=== PATIENT | female | born 1980 | race Asian ===

== ENCOUNTER 2016-06-09 14:04 | Emergency (ER) | payer MEDICAID, OTHER ==
[~2016-06-09] VITALS: Ht 157.5 cm; Wt 47.3 kg
[~2016-06-09 14:04] MED LIST: LORA1TAB3 PO
[2016-06-09] MEDS ORDERED: RANI150T7 PO (14:29)
[2016-06-09 17:12] VITALS: BP 115/65
== END 2016-06-09 18:08 | disposition home or self-care (01) ==
LOC: EMS 14:06
DX: J30.9 Allergic rhinitis, unspecified (principal); K21.9 Gastro-esophageal reflux disease without esophagitis
CPT/HCPCS: 99283

== ENCOUNTER 2016-06-10 09:27 | Emergency (ER) | payer OTHER ==
[~2016-06-10] VITALS: Ht 157.5 cm; Wt 48.0 kg
[~2016-06-10 09:27] MED LIST changes: -LORA1TAB3 PO; +RANI150T7 PO
[2016-06-10 11:55] VITALS: BP 114/75
== END 2016-06-10 12:09 | disposition home or self-care (01) ==
LOC: EMS 09:28
DX: K11.7 Disturbances of salivary secretion (principal); K21.9 Gastro-esophageal reflux disease without esophagitis; F41.9 Anxiety disorder, unspecified
CPT/HCPCS: 99283

== ENCOUNTER 2021-06-18 16:39 | Inpatient (IN) | payer MEDICAID, OTHER ==
[~2021-06-18] VITALS: Ht 157.5 cm; Wt 42.5 kg
[~2021-06-18 16:39] MED LIST changes: +FERR325T27 PO; +RISP3TAB35 PO
[2021-06-18 18:42] LABS: COVID AG,FIA SOURCE NASAL SWAB
[2021-06-18] MEDS ORDERED: HALOPERIDOL LACTATE 5 MG/ML VIAL IM ONE (19:30)
[2021-06-18] MEDS ORDERED: LORazepam 2 MG/ML VIAL IM ONE (19:30)
[2021-06-18] MEDS ORDERED: DiphenhydrAMINE HCL 50 MG/ML VIAL IM ONE (19:30)
[2021-06-18 20:23] LABS: BASOPHILS % (AUTO) 0.5 % (0.0-2.0); EOSINOPHILS % (AUTO) 0.2 % (1.0-6.0); HEMATOCRIT 34.6 % (36-46); HEMOGLOBIN 11.3 g/dL (12.0-16.0); LYMPHOCYTES # (AUTO) 0.7 K/uL (1.0-4.8); LYMPHOCYTES % (AUTO) 10.8 % (22.0-44.0); MEAN CORPUSCULAR HGB CONC 32.7 G/dL (31.0-37.0); MEAN CORPUSCULAR VOLUME 86 fL (80-100); MONOCYTES # (AUTO) 0.4 K/uL (0.1-1.0); MONOCYTES % (AUTO) 6.6 % (2.0-9.0); NEUTROPHILS # (AUTO) 5.2 K/uL (1.8-7.7); NEUTROPHILS % (AUTO) 81.9 % (40.0-70.0); PLATELET COUNT (AUTO) 231 K/uL (150-450); RED BLOOD CELL COUNT(AUTO) 4.05 MIL/uL (4.00-5.20); RED CELL DISTRIBUTION WIDTH 13.1 % (11.5-14.5)
[2021-06-18 20:32] LABS: ANION GAP 5 mmol/L (8-16); CALCIUM, TOTAL 8.9 mg/dL (8.8-10.5); CARBON DIOXIDE 29 mmol/L (22-29); CHLORIDE 104 mmol/L (98-107); CREATININE 0.73 mg/dL (0.60-1.30); GLOMERULAR FILTR. RATE CALC > 60 mL/min (>60); GLUCOSE,RANDOM 113 mg/dL (70-110); POTASSIUM 3.7 mmol/L (3.5-5.1); SODIUM SERUM 138 mmol/L (136-145); UREA NITROGEN, BLOOD 10 mg/dL (7-18)
[2021-06-18 20:38] LABS: ALANINE AMINOTRANSFERASE 17 U/L (12-78); ALBUMIN 3.6 g/dL (3.4-5.0); ALKALINE PHOSPHATASE 58 U/L (46-116); ASPARTATE AMINOTRANSFERASE 17 U/L (15-37); BILIRUBIN,TOTAL 0.3 mg/dL (0.1-1.0); TOTAL PROTEIN, SERUM 7.2 g/dL (6.4-8.2)
[2021-06-18 21:00] LABS: THYROID STIMULATING HORMONE 1.64 uIU/mL (0.36-3.74)
[2021-06-18] MEDS ORDERED: ZOLPIDEM TARTRATE 10 MG TABLET PO PRN (22:45)
[2021-06-18] MEDS ORDERED: LORazepam 2 MG TABLET PO PRN (22:45)
[2021-06-18] MEDS ORDERED: HALOPERIDOL 5 MG TABLET PO PRN (22:45)
[2021-06-19 00:30] VITALS: BP 119/74
[2021-06-19] MEDS ORDERED: INFLUENZA VIRUS VACCINE QVS 2021-22 (6MO+)/PF 60 MCG/0.5 ML SYRINGE IM. ONE (06:45)
[2021-06-19] MEDS ORDERED: RisperiDONE 3 MG TABLET PO SCH (11:00)
[2021-06-19] MEDS ORDERED: LOPERAMIDE HCL 2 MG CAPSULE PO PRN (11:30)
[2021-06-19] MEDS ORDERED: IBUPROFEN 400 MG TABLET PO PRN (11:30)
[2021-06-19] MEDS ORDERED: DOCUSATE SODIUM 100 MG CAPSULE PO PRN (11:30)
[2021-06-19] MEDS ORDERED: MAGNESIUM HYDROXIDE SUSPENSION 30 ML UDCUP PO PRN (11:30)
[2021-06-19] MEDS ORDERED: CloNIDine HCL 0.1 MG TABLET PO PRN (11:30)
[2021-06-19] MEDS ORDERED: MAG HYDROX/AL HYDROX/SIMETH ES 30 ML SUSPENSION UDCUP PO PRN (11:30)
[2021-06-19] MEDS ORDERED: ALBUTEROL SULFATE HFA 90 MCG/PUFF 8 GM INHALER IH PRN (11:30)
[2021-06-19] MEDS ORDERED: GuaiFENesin/D-METHORPHAN [SUGAR-FREE] 200-20MG/10 ML SYRUP UDCUP PO PRN (11:30)
[2021-06-19] MEDS ORDERED: ACETAMINOPHEN 325 MG TABLET PO PRN (11:30)
[2021-06-19] MEDS ORDERED: ONDANSETRON HCL 4 MG TABLET PO PRN (11:30)
[2021-06-19] MEDS ORDERED: NICOTINE 14 MG/24 HOUR PATCH TD PRN (11:30)
[2021-06-19] MEDS ORDERED: PETROLATUM,WHITE 28 GM JELLY TP PRN (11:30)
[2021-06-19] MEDS: RisperiDONE 2 MG TABLET PO SCH (21:00)
[2021-06-20] MEDS: RisperiDONE 2 MG TABLET PO SCH ×2 (09:00→21:00)
[2021-06-20] MEDS: SERTRALINE HCL 50 MG TABLET PO SCH (09:00)
[2021-06-21] MEDS: SERTRALINE HCL 50 MG TABLET PO SCH (08:47)
[2021-06-21] MEDS: RisperiDONE 2 MG TABLET PO SCH ×2 (08:47→20:50)
[2021-06-22] MEDS: RisperiDONE 2 MG TABLET PO SCH ×4 (08:38→21:00)
[2021-06-22] MEDS: SERTRALINE HCL 50 MG TABLET PO SCH ×2 (08:38→09:00)
[2021-06-23] MEDS: SERTRALINE HCL 50 MG TABLET PO SCH (09:00)
[2021-06-23] MEDS: RisperiDONE 2 MG TABLET PO SCH ×2 (09:00→20:35)
[2021-06-24] MEDS: SERTRALINE HCL 50 MG TABLET PO SCH (09:00)
[2021-06-24] MEDS: RisperiDONE 2 MG TABLET PO SCH ×2 (09:00→20:32)
[2021-06-25] MEDS: SERTRALINE HCL 50 MG TABLET PO SCH (09:00)
[2021-06-25] MEDS: RisperiDONE 2 MG TABLET PO SCH ×2 (09:00→20:48)
[2021-06-26] MEDS: SERTRALINE HCL 50 MG TABLET PO SCH (09:00)
[2021-06-26] MEDS: RisperiDONE 2 MG TABLET PO SCH ×2 (09:00→20:46)
[2021-06-27] MEDS: RisperiDONE 2 MG TABLET PO SCH ×2 (09:00→21:00)
[2021-06-27] MEDS: SERTRALINE HCL 50 MG TABLET PO SCH (09:00)
[2021-06-28] MEDS: SERTRALINE HCL 50 MG TABLET PO SCH (09:00)
[2021-06-28] MEDS: RisperiDONE 2 MG TABLET PO SCH ×2 (09:00→20:47)
[2021-06-29] MEDS: RisperiDONE 2 MG TABLET PO SCH ×2 (09:00→21:00)
[2021-06-29] MEDS: SERTRALINE HCL 50 MG TABLET PO SCH (09:00)
[2021-06-30] MEDS: SERTRALINE HCL 50 MG TABLET PO SCH (09:00)
[2021-06-30] MEDS: RisperiDONE 2 MG TABLET PO SCH ×2 (09:00→20:33)
[2021-06-30] MEDS: HALOPERIDOL LACTATE 5 MG/ML VIAL IM PRN (20:34)
[2021-07-01] MEDS: SERTRALINE HCL 50 MG TABLET PO SCH (09:00)
[2021-07-01] MEDS: RisperiDONE 2 MG TABLET PO SCH ×2 (09:00→20:44)
[2021-07-01] MEDS: HALOPERIDOL LACTATE 5 MG/ML VIAL IM PRN ×2 (11:05→20:45)
[2021-07-02] MEDS: SERTRALINE HCL 50 MG TABLET PO SCH (09:00)
[2021-07-02] MEDS: RisperiDONE 2 MG TABLET PO SCH ×2 (09:00→21:00)
[2021-07-02] MEDS: HALOPERIDOL LACTATE 5 MG/ML VIAL IM PRN ×2 (10:58→21:08)
[2021-07-03] MEDS: RisperiDONE 2 MG TABLET PO SCH ×2 (09:00→20:42)
[2021-07-03] MEDS: SERTRALINE HCL 50 MG TABLET PO SCH (09:00)
[2021-07-03] MEDS: HALOPERIDOL LACTATE 5 MG/ML VIAL IM PRN ×2 (09:35→20:50)
[2021-07-04] MEDS: SERTRALINE HCL 50 MG TABLET PO SCH (09:00)
[2021-07-04] MEDS: RisperiDONE 2 MG TABLET PO SCH ×2 (09:00→20:37)
[2021-07-04] MEDS: HALOPERIDOL LACTATE 5 MG/ML VIAL IM PRN ×2 (10:45→20:47)
[2021-07-05] MEDS: SERTRALINE HCL 50 MG TABLET PO SCH (09:00)
[2021-07-05] MEDS: RisperiDONE 2 MG TABLET PO SCH ×2 (09:00→20:52)
[2021-07-05] MEDS: HALOPERIDOL LACTATE 5 MG/ML VIAL IM PRN ×2 (10:15→20:54)
[2021-07-06] MEDS: RisperiDONE 2 MG TABLET PO SCH ×2 (09:00→20:54)
[2021-07-06] MEDS: SERTRALINE HCL 50 MG TABLET PO SCH (09:00)
[2021-07-07] MEDS: SERTRALINE HCL 50 MG TABLET PO SCH ×2 (09:00→09:04)
[2021-07-07] MEDS: RisperiDONE 2 MG TABLET PO SCH ×3 (09:00→21:00)
[2021-07-08] MEDS: RisperiDONE 2 MG TABLET PO SCH ×2 (09:00→21:00)
[2021-07-08] MEDS: SERTRALINE HCL 50 MG TABLET PO SCH (09:00)
[2021-07-09] MEDS: RisperiDONE 2 MG TABLET PO SCH ×2 (09:00→21:00)
[2021-07-09] MEDS: SERTRALINE HCL 50 MG TABLET PO SCH (09:00)
[2021-07-10] MEDS: SERTRALINE HCL 50 MG TABLET PO SCH (09:00)
[2021-07-10] MEDS: RisperiDONE 2 MG TABLET PO SCH ×2 (09:00→20:35)
[2021-07-11] MEDS: RisperiDONE 2 MG TABLET PO SCH ×2 (09:00→20:28)
[2021-07-11] MEDS: SERTRALINE HCL 50 MG TABLET PO SCH (09:00)
[2021-07-12] MEDS: RisperiDONE 2 MG TABLET PO SCH (09:00)
[2021-07-12] MEDS: SERTRALINE HCL 50 MG TABLET PO SCH (09:00)
[2021-07-12] MEDS ORDERED: SERT-439 PO (10:57)
[2021-07-12] MEDS ORDERED: RISP2TAB86 PO (10:57)
[2021-07-12 12:30] VITALS: BP 118/76
== END 2021-07-12 16:40 | disposition home or self-care (01) | DRG 750 ==
LOC: EMS 18:18 → 3EI 06-19 00:07
PROVIDERS: ADMIT Psychiatry & Neurology Psychiatry; ATTEND Psychiatry & Neurology Psychiatry
DX: F20.0 Paranoid schizophrenia (principal); E46 Unspecified protein-calorie malnutrition; D70.9 Neutropenia, unspecified; Z91.14 Patient's other noncompliance with medication regimen; F41.0 Panic disorder [episodic paroxysmal anxiety]; F94.0 Selective mutism; K21.9 Gastro-esophageal reflux disease without esophagitis; D64.9 Anemia, unspecified; Z20.822 Contact with and (suspected) exposure to COVID-19; Z68.1 Body mass index [BMI] 19.9 or less, adult
CPT/HCPCS: 80053; 84443; 85025; 99285; G0480; J1200; J1630; J2060

== ENCOUNTER 2022-01-07 14:23 | Inpatient (IN) | payer MEDICAID, OTHER ==
[~2022-01-07] VITALS: Ht 160 cm; Wt 45.8 kg
[~2022-01-07 14:23] MED LIST changes: -FERR325T27 PO; -RANI150T7 PO; +RISP2TAB86 PO; -RISP3TAB35 PO; +SERT-439 PO
[2022-01-07] MEDS ORDERED: LORazepam 2 MG TABLET PO PRN (16:30)
[2022-01-07] MEDS ORDERED: ZOLPIDEM TARTRATE 10 MG TABLET PO PRN (16:30)
[2022-01-07] MEDS ORDERED: HALOPERIDOL 5 MG TABLET PO PRN (16:30)
[2022-01-07 16:35] LABS: COVID AG,FIA SOURCE NASOPHARYNGEAL
[2022-01-07] MEDS ORDERED: INFLUENZA VIRUS VACCINE QVS 2022-23 (6MO+)/PF 60 MCG/0.5 ML SYRINGE IM. ONE (22:00)
[2022-01-08] MEDS ORDERED: PETROLATUM,WHITE 28 GM JELLY TP PRN (11:30)
[2022-01-08] MEDS ORDERED: LOPERAMIDE HCL 2 MG CAPSULE PO PRN (11:30)
[2022-01-08] MEDS ORDERED: ONDANSETRON HCL 4 MG TABLET PO PRN (11:30)
[2022-01-08] MEDS ORDERED: ACETAMINOPHEN 325 MG TABLET PO PRN (11:30)
[2022-01-08] MEDS ORDERED: NICOTINE 14 MG/24 HOUR PATCH TD PRN (11:30)
[2022-01-08] MEDS ORDERED: MAG HYDROX/AL HYDROX/SIMETH ES 30 ML SUSPENSION UDCUP PO PRN (11:30)
[2022-01-08] MEDS ORDERED: ALBUTEROL SULFATE HFA 90 MCG/PUFF 8 GM INHALER IH PRN (11:30)
[2022-01-08] MEDS ORDERED: CloNIDine HCL 0.1 MG TABLET PO PRN (11:30)
[2022-01-08] MEDS ORDERED: DOCUSATE SODIUM 100 MG CAPSULE PO PRN (11:30)
[2022-01-08] MEDS ORDERED: GuaiFENesin/D-METHORPHAN [SUGAR-FREE] 200-20MG/10 ML SYRUP UDCUP PO PRN (11:30)
[2022-01-08] MEDS ORDERED: MAGNESIUM HYDROXIDE SUSPENSION 30 ML UDCUP PO PRN (11:30)
[2022-01-08] MEDS ORDERED: IBUPROFEN 400 MG TABLET PO PRN (11:30)
[2022-01-08] MEDS: SERTRALINE HCL 50 MG TABLET PO SCH (14:30)
[2022-01-08] MEDS: RisperiDONE 2 MG TABLET PO SCH ×2 (14:30→20:49)
[2022-01-09] MEDS: RisperiDONE 2 MG TABLET PO SCH ×2 (09:00→20:19)
[2022-01-09] MEDS: SERTRALINE HCL 50 MG TABLET PO SCH (09:00)
[2022-01-10] MEDS: SERTRALINE HCL 50 MG TABLET PO SCH (09:00)
[2022-01-10] MEDS: RisperiDONE 2 MG TABLET PO SCH ×2 (09:00→20:49)
[2022-01-11] MEDS: RisperiDONE 2 MG TABLET PO SCH ×2 (09:00→20:25)
[2022-01-11] MEDS: SERTRALINE HCL 50 MG TABLET PO SCH (09:00)
[2022-01-12] MEDS: RisperiDONE 2 MG TABLET PO SCH ×2 (09:00→20:48)
[2022-01-12] MEDS: SERTRALINE HCL 50 MG TABLET PO SCH (09:00)
[2022-01-13] MEDS: RisperiDONE 2 MG TABLET PO SCH ×2 (08:19→21:00)
[2022-01-13] MEDS: SERTRALINE HCL 50 MG TABLET PO SCH (08:19)
[2022-01-14] MEDS: RisperiDONE 2 MG TABLET PO SCH ×2 (09:00→20:54)
[2022-01-14] MEDS: SERTRALINE HCL 50 MG TABLET PO SCH (09:00)
[2022-01-15] MEDS: SERTRALINE HCL 50 MG TABLET PO SCH (09:00)
[2022-01-15] MEDS: RisperiDONE 2 MG TABLET PO SCH ×2 (09:00→20:18)
[2022-01-16] MEDS: SERTRALINE HCL 50 MG TABLET PO SCH (09:00)
[2022-01-16] MEDS: RisperiDONE 2 MG TABLET PO SCH ×2 (09:00→20:07)
[2022-01-17] MEDS: SERTRALINE HCL 50 MG TABLET PO SCH (09:00)
[2022-01-17] MEDS: RisperiDONE 2 MG TABLET PO SCH ×2 (09:00→21:00)
[2022-01-18] MEDS: SERTRALINE HCL 50 MG TABLET PO SCH (09:00)
[2022-01-18] MEDS: RisperiDONE 2 MG TABLET PO SCH ×2 (09:00→21:00)
[2022-01-19] MEDS: SERTRALINE HCL 50 MG TABLET PO SCH (09:00)
[2022-01-19] MEDS: RisperiDONE 2 MG TABLET PO SCH ×2 (09:00→21:00)
[2022-01-20] MEDS: SERTRALINE HCL 50 MG TABLET PO SCH (09:00)
[2022-01-20] MEDS: RisperiDONE 2 MG TABLET PO SCH ×2 (09:00→20:27)
[2022-01-21] MEDS: RisperiDONE 2 MG TABLET PO SCH ×3 (08:43→20:29)
[2022-01-21] MEDS: SERTRALINE HCL 50 MG TABLET PO SCH ×2 (08:44→09:00)
[2022-01-22] MEDS: SERTRALINE HCL 50 MG TABLET PO SCH (09:00)
[2022-01-22] MEDS: RisperiDONE 2 MG TABLET PO SCH ×2 (09:00→20:31)
[2022-01-23] MEDS: SERTRALINE HCL 50 MG TABLET PO SCH (09:00)
[2022-01-23] MEDS: RisperiDONE 2 MG TABLET PO SCH ×2 (09:00→20:52)
[2022-01-24] MEDS: SERTRALINE HCL 50 MG TABLET PO SCH (09:00)
[2022-01-24] MEDS: RisperiDONE 2 MG TABLET PO SCH ×2 (09:00→20:14)
[2022-01-25] MEDS: SERTRALINE HCL 50 MG TABLET PO SCH (09:00)
[2022-01-25] MEDS: RisperiDONE 2 MG TABLET PO SCH ×2 (09:00→20:44)
[2022-01-25] MEDS: ChlorproMAZINE HCL 50 MG/2 ML AMP IM PRN (20:44)
[2022-01-26] MEDS: SERTRALINE HCL 50 MG TABLET PO SCH (09:00)
[2022-01-26] MEDS: RisperiDONE 2 MG TABLET PO SCH ×2 (09:00→20:20)
[2022-01-26] MEDS: ChlorproMAZINE HCL 50 MG/2 ML AMP IM PRN ×2 (09:44→20:23)
[2022-01-27] MEDS: SERTRALINE HCL 50 MG TABLET PO SCH (09:00)
[2022-01-27] MEDS: RisperiDONE 2 MG TABLET PO SCH ×2 (09:00→20:33)
[2022-01-27] MEDS: ChlorproMAZINE HCL 50 MG/2 ML AMP IM PRN ×2 (11:31→20:34)
[2022-01-28] MEDS: RisperiDONE 2 MG TABLET PO SCH ×2 (09:00→20:30)
[2022-01-28] MEDS: SERTRALINE HCL 50 MG TABLET PO SCH (09:00)
[2022-01-28] MEDS: ChlorproMAZINE HCL 50 MG/2 ML AMP IM PRN ×2 (09:26→20:31)
[2022-01-29] MEDS: RisperiDONE 2 MG TABLET PO SCH ×2 (09:00→20:40)
[2022-01-29] MEDS: SERTRALINE HCL 50 MG TABLET PO SCH (09:00)
[2022-01-29] MEDS: ChlorproMAZINE HCL 50 MG/2 ML AMP IM PRN ×2 (09:50→20:41)
[2022-01-30] MEDS: RisperiDONE 2 MG TABLET PO SCH ×2 (09:00→20:46)
[2022-01-30] MEDS: SERTRALINE HCL 50 MG TABLET PO SCH (09:00)
[2022-01-30] MEDS: ChlorproMAZINE HCL 50 MG/2 ML AMP IM PRN ×2 (09:39→20:47)
[2022-01-31] MEDS: SERTRALINE HCL 50 MG TABLET PO SCH (09:00)
[2022-01-31] MEDS: RisperiDONE 2 MG TABLET PO SCH ×2 (09:00→21:00)
[2022-01-31] MEDS: ChlorproMAZINE HCL 50 MG/2 ML AMP IM PRN ×2 (09:10→21:17)
[2022-02-01] MEDS: SERTRALINE HCL 50 MG TABLET PO SCH (08:30)
[2022-02-01] MEDS: RisperiDONE 2 MG TABLET PO SCH ×2 (08:30→21:00)
[2022-02-01] MEDS: ChlorproMAZINE HCL 50 MG/2 ML AMP IM PRN ×2 (08:40→21:16)
[2022-02-02] MEDS: SERTRALINE HCL 50 MG TABLET PO SCH (09:00)
[2022-02-02] MEDS ORDERED: ChlorproMAZINE HCL 50 MG/2 ML AMP IM PRN (09:15)
[2022-02-02] MEDS ORDERED: RisperiDONE 1 MG TABLET PO SCH (10:45)
[2022-02-02] MEDS: RisperiDONE 1 MG TABLET PO SCH ×3 (13:53→20:37)
[2022-02-03] MEDS: SERTRALINE HCL 50 MG TABLET PO SCH (09:00)
[2022-02-03] MEDS: RisperiDONE 1 MG TABLET PO SCH ×4 (09:47→20:49)
[2022-02-04] MEDS: RisperiDONE 1 MG TABLET PO SCH ×4 (08:44→20:23)
[2022-02-04] MEDS: SERTRALINE HCL 50 MG TABLET PO SCH (08:44)
[2022-02-05] MEDS: RisperiDONE 1 MG TABLET PO SCH ×4 (10:19→21:11)
[2022-02-05] MEDS: SERTRALINE HCL 50 MG TABLET PO SCH (10:19)
[2022-02-06] MEDS: SERTRALINE HCL 50 MG TABLET PO SCH (10:22)
[2022-02-06] MEDS: RisperiDONE 1 MG TABLET PO SCH ×4 (10:23→20:09)
[2022-02-07] MEDS: RisperiDONE 1 MG TABLET PO SCH ×4 (08:08→20:25)
[2022-02-07] MEDS: SERTRALINE HCL 50 MG TABLET PO SCH (08:08)
[2022-02-08] MEDS: SERTRALINE HCL 50 MG TABLET PO SCH (08:03)
[2022-02-08] MEDS: RisperiDONE 1 MG TABLET PO SCH ×4 (08:03→20:35)
[2022-02-09] MEDS: SERTRALINE HCL 50 MG TABLET PO SCH (09:26)
[2022-02-09] MEDS: RisperiDONE 1 MG TABLET PO SCH ×4 (09:27→20:52)
[2022-02-10] MEDS: RisperiDONE 1 MG TABLET PO SCH ×2 (09:30→12:45)
[2022-02-10] MEDS: SERTRALINE HCL 50 MG TABLET PO SCH (09:30)
[2022-02-10] MEDS: RisperiDONE CONC 1 MG/ML SOLUTION ORAL.SYG PO SCH ×2 (16:31→21:01)
[2022-02-11] MEDS: RisperiDONE CONC 1 MG/ML SOLUTION ORAL.SYG PO SCH ×4 (08:34→20:18)
[2022-02-11] MEDS: SERTRALINE HCL 50 MG TABLET PO SCH (08:34)
[2022-02-12] MEDS: RisperiDONE CONC 1 MG/ML SOLUTION ORAL.SYG PO SCH ×4 (08:39→21:00)
[2022-02-12] MEDS: SERTRALINE HCL 50 MG TABLET PO SCH (08:39)
[2022-02-13] MEDS: SERTRALINE HCL 50 MG TABLET PO SCH (09:09)
[2022-02-13] MEDS: RisperiDONE CONC 1 MG/ML SOLUTION ORAL.SYG PO SCH ×4 (09:09→20:20)
[2022-02-14] MEDS: SERTRALINE HCL 50 MG TABLET PO SCH (08:29)
[2022-02-14] MEDS: RisperiDONE CONC 1 MG/ML SOLUTION ORAL.SYG PO SCH ×4 (08:30→21:02)
[2022-02-15] MEDS: SERTRALINE HCL 50 MG TABLET PO SCH (08:39)
[2022-02-15] MEDS: RisperiDONE CONC 1 MG/ML SOLUTION ORAL.SYG PO SCH ×4 (08:39→20:29)
[2022-02-16] MEDS: RisperiDONE CONC 1 MG/ML SOLUTION ORAL.SYG PO SCH (09:11)
[2022-02-16] MEDS: SERTRALINE HCL 50 MG TABLET PO SCH (09:11)
[2022-02-16] MEDS ORDERED: ChlorproMAZINE HCL 50 MG/2 ML AMP IM PRN ×2 (11:45→12:00)
[2022-02-16] MEDS ORDERED: RisperiDONE 1 MG TABLET PO SCH (11:45)
[2022-02-16] MEDS ORDERED: RisperiDONE 2 MG TABLET PO ONE (12:00)
[2022-02-16] MEDS ORDERED: RisperiDONE CONC 2 MG/2 ML SOLUTION ORAL.SYG PO ONE (13:00)
[2022-02-16] MEDS: RisperiDONE CONC 3 MG/3 ML SOLUTION ORAL.SYG PO SCH (20:58)
[2022-02-16] MEDS ORDERED: RisperiDONE 3 MG TABLET PO SCH (21:00)
[2022-02-16] MEDS ORDERED: RisperiDONE CONC 1 MG/ML SOLUTION ORAL.SYG PO SCH (21:00)
[2022-02-17] MEDS: RisperiDONE CONC 3 MG/3 ML SOLUTION ORAL.SYG PO SCH ×2 (09:04→20:56)
[2022-02-17] MEDS: SERTRALINE HCL 50 MG TABLET PO SCH (09:09)
[2022-02-18] MEDS: RisperiDONE CONC 3 MG/3 ML SOLUTION ORAL.SYG PO SCH ×2 (09:08→20:23)
[2022-02-18] MEDS: SERTRALINE HCL 50 MG TABLET PO SCH (09:19)
[2022-02-19] MEDS: RisperiDONE CONC 3 MG/3 ML SOLUTION ORAL.SYG PO SCH ×2 (09:12→20:13)
[2022-02-19] MEDS: SERTRALINE HCL 50 MG TABLET PO SCH (09:15)
[2022-02-20] MEDS: RisperiDONE CONC 3 MG/3 ML SOLUTION ORAL.SYG PO SCH ×2 (09:35→20:50)
[2022-02-20] MEDS: SERTRALINE HCL 50 MG TABLET PO SCH (09:36)
[2022-02-20] MEDS: BENZTROPINE MESYLATE 1 MG TABLET PO SCH ×2 (11:25→16:48)
[2022-02-21] MEDS: SERTRALINE HCL 50 MG TABLET PO SCH (10:19)
[2022-02-21] MEDS: BENZTROPINE MESYLATE 1 MG TABLET PO SCH ×2 (10:20→19:25)
[2022-02-21] MEDS: RisperiDONE CONC 3 MG/3 ML SOLUTION ORAL.SYG PO SCH ×2 (10:20→20:11)
[2022-02-22] MEDS: SERTRALINE HCL 50 MG TABLET PO SCH (08:57)
[2022-02-22] MEDS: BENZTROPINE MESYLATE 1 MG TABLET PO SCH ×2 (08:57→17:36)
[2022-02-22] MEDS: RisperiDONE CONC 3 MG/3 ML SOLUTION ORAL.SYG PO SCH ×2 (08:57→20:47)
[2022-02-23] MEDS: RisperiDONE CONC 3 MG/3 ML SOLUTION ORAL.SYG PO SCH (09:26)
[2022-02-23] MEDS: BENZTROPINE MESYLATE 1 MG TABLET PO SCH (09:26)
[2022-02-23] MEDS: SERTRALINE HCL 50 MG TABLET PO SCH (09:26)
[2022-02-23] MEDS ORDERED: SERT-439 PO (10:50)
[2022-02-23] MEDS ORDERED: RISP1SOL11 PO (10:50)
[2022-02-23] MEDS ORDERED: BENZ1TAB96 PO (10:50)
[2022-02-23 15:58] LABS: COVID AG,FIA SOURCE NASAL SWAB
== END 2022-02-23 11:15 | disposition home or self-care (01) | DRG 750 ==
LOC: EMS 14:25 → 3EI 21:16
PROVIDERS: ADMIT Psychiatry & Neurology Psychiatry; ATTEND Psychiatry & Neurology Psychiatry
DX: F20.0 Paranoid schizophrenia (principal); E44.0 Moderate protein-calorie malnutrition; F50.9 Eating disorder, unspecified; Z91.14 Patient's other noncompliance with medication regimen; Z20.822 Contact with and (suspected) exposure to COVID-19; K21.9 Gastro-esophageal reflux disease without esophagitis; F41.9 Anxiety disorder, unspecified; Z86.59 Personal history of other mental and behavioral disorders; Z68.1 Body mass index [BMI] 19.9 or less, adult
CPT/HCPCS: 87081; 99285; J3230; 36415-L1; 36415-TC; Z7502; Z7610

== ENCOUNTER 2022-11-18 16:05 | Inpatient (IN) | payer MEDICAID, OTHER ==
[~2022-11-18 16:05] MED LIST changes: +BENZ1TAB84 PO; +RISP1SOL11 PO; -RISP2TAB86 PO
[2022-11-18] MEDS ORDERED: ZOLPIDEM TARTRATE 10 MG TABLET PO PRN (17:30)
[2022-11-18] MEDS ORDERED: HALOPERIDOL 5 MG TABLET PO PRN (17:30)
[2022-11-18] MEDS ORDERED: LORazepam 2 MG/ML VIAL IM ONE (18:45)
[2022-11-18] MEDS ORDERED: DiphenhydrAMINE HCL 50 MG/ML VIAL IM ONE (18:45)
[2022-11-18] MEDS ORDERED: HALOPERIDOL LACTATE 5 MG/ML VIAL IM ONE (18:45)
[2022-11-18 20:04] LABS: COVID AG,FIA SOURCE NASAL SWAB
[2022-11-18 20:43] LABS: SARS-COV2 (COVID) ANTIGEN,FIA Negative (Negative)
[2022-11-19] MEDS ORDERED: DiphenhydrAMINE HCL 50 MG/ML VIAL IM ONE (13:45)
[2022-11-19] MEDS ORDERED: HALOPERIDOL LACTATE 5 MG/ML VIAL IM ONE (13:45)
[2022-11-19] MEDS ORDERED: LORazepam 2 MG/ML VIAL IM ONE (13:45)
[2022-11-19 14:00] VITALS: RESP 20
[2022-11-19 15:00] VITALS: RESP 18
[2022-11-19 20:37] VITALS: RESP 18; TEMP 97.5
[2022-11-20] MEDS ORDERED: OMEPRAZOLE 20 MG CAPSULE PO PRN (07:15)
[2022-11-20] MEDS ORDERED: IBUPROFEN 600 MG TABLET PO PRN (07:15)
[2022-11-20] MEDS ORDERED: PETROLATUM,WHITE 28 GM JELLY TP PRN (07:15)
[2022-11-20] MEDS ORDERED: LOPERAMIDE HCL 2 MG CAPSULE PO PRN (07:15)
[2022-11-20] MEDS ORDERED: BENZOCAINE/MENTHOL LOZENGE PO PRN (07:15)
[2022-11-20] MEDS ORDERED: DOCUSATE SODIUM 100 MG CAPSULE PO PRN (07:15)
[2022-11-20] MEDS ORDERED: MAGNESIUM HYDROXIDE SUSPENSION 30 ML UDCUP PO PRN (07:15)
[2022-11-20] MEDS ORDERED: CloNIDine HCL 0.1 MG TABLET PO PRN (07:15)
[2022-11-20] MEDS ORDERED: ALBUTEROL SULFATE HFA 90 MCG/PUFF 8 GM INHALER IH PRN (07:15)
[2022-11-20] MEDS ORDERED: ACETAMINOPHEN 325 MG TABLET PO PRN (07:15)
[2022-11-20] MEDS ORDERED: MAG HYDROX/AL HYDROX/SIMETH ES 30 ML SUSPENSION UDCUP PO PRN (07:15)
[2022-11-20] MEDS ORDERED: ONDANSETRON HCL 4 MG TABLET PO PRN (07:15)
[2022-11-20] MEDS ORDERED: BACITRACIN 28 GM OINTMENT TP PRN (07:15)
[2022-11-20 09:56] VITALS: RESP 18
[2022-11-21 01:06] VITALS: RESP 18
[2022-11-21 08:43] VITALS: RESP 16
[2022-11-21] MEDS: RisperiDONE 3 MG TABLET PO SCH (16:08)
[2022-11-21 20:13] VITALS: RESP 18; TEMP 98.3
[2022-11-21] MEDS: BENZTROPINE MESYLATE 2 MG TABLET PO SCH (20:31)
[2022-11-22 08:32] VITALS: RESP 16
[2022-11-22] MEDS: RisperiDONE 3 MG TABLET PO SCH ×2 (09:00→16:13)
[2022-11-22] MEDS ORDERED: LORazepam 2 MG/ML VIAL IM ONE ×2 (12:15→16:30)
[2022-11-22 20:17] VITALS: RESP 17
[2022-11-22] MEDS: BENZTROPINE MESYLATE 2 MG TABLET PO SCH (20:32)
[2022-11-23 08:34] VITALS: RESP 16
[2022-11-23] MEDS: RisperiDONE 3 MG TABLET PO SCH ×4 (09:00→16:40)
[2022-11-23] MEDS ORDERED: LORazepam 2 MG/ML VIAL IM ONE (18:15)
[2022-11-23 20:36] VITALS: RESP 17
[2022-11-23] MEDS: BENZTROPINE MESYLATE 2 MG TABLET PO SCH (21:00)
[2022-11-24 08:37] VITALS: RESP 16
[2022-11-24] MEDS: RisperiDONE 3 MG TABLET PO SCH ×2 (09:00→17:00)
[2022-11-24 20:18] VITALS: RESP 18
[2022-11-24] MEDS: BENZTROPINE MESYLATE 2 MG TABLET PO SCH (20:40)
[2022-11-24] MEDS ORDERED: LORazepam 2 MG/ML VIAL ONE (21:24)
[2022-11-24] MEDS ORDERED: LORazepam 2 MG/ML VIAL IM ONE (21:30)
[2022-11-25 08:28] LABS: ALANINE AMINOTRANSFERASE 10 U/L (12-78); ALBUMIN 4.1 g/dL (3.4-5.0); ALKALINE PHOSPHATASE 63 U/L (46-116); ANION GAP 21 mmol/L (8-16); ASPARTATE AMINOTRANSFERASE 19 U/L (15-37); CALCIUM, TOTAL 9.3 mg/dL (8.8-10.5); CARBON DIOXIDE 21 mmol/L (22-29); CHLORIDE 100 mmol/L (98-107); CREATININE 0.84 mg/dL (0.60-1.30); GLOMERULAR FILTR. RATE CALC > 60 mL/min (>60); GLUCOSE,RANDOM 65 mg/dL (70-110); POTASSIUM 4.1 mmol/L (3.5-5.1); SODIUM SERUM 142 mmol/L (136-145); TOTAL PROTEIN, SERUM 7.9 g/dL (6.4-8.2); UREA NITROGEN, BLOOD 12 mg/dL (7-18)
[2022-11-25] MEDS: RisperiDONE 3 MG TABLET PO SCH ×2 (09:00→17:00)
[2022-11-25] MEDS ORDERED: RisperiDONE MICROSPHERES 50 MG/2 ML SYRINGE IM ONE (15:15)
[2022-11-25] MEDS: BENZTROPINE MESYLATE 2 MG TABLET PO SCH (21:00)
[2022-11-25 21:03] VITALS: RESP 18
[2022-11-26 08:24] VITALS: RESP 16; TEMP 97.8
[2022-11-26] MEDS: RisperiDONE 3 MG TABLET PO SCH ×2 (08:49→16:23)
[2022-11-26] MEDS: BENZTROPINE MESYLATE 2 MG TABLET PO SCH (20:18)
[2022-11-27 02:29] VITALS: RESP 18; TEMP 98.1
[2022-11-27 08:20] VITALS: RESP 16; TEMP 98.2
[2022-11-27] MEDS: RisperiDONE 3 MG TABLET PO SCH ×2 (09:56→17:00)
[2022-11-27] MEDS ORDERED: LORazepam 2 MG/ML VIAL IM ONE ×3 (10:00→21:00)
[2022-11-27 20:39] VITALS: RESP 17
[2022-11-27] MEDS: LORazepam 2 MG TABLET PO PRN ×2 (20:45→22:02)
[2022-11-27] MEDS: BENZTROPINE MESYLATE 2 MG TABLET PO SCH ×2 (21:00→21:05)
[2022-11-28 08:28] VITALS: RESP 16
[2022-11-28] MEDS: RisperiDONE 3 MG TABLET PO SCH ×2 (09:00→17:00)
[2022-11-28] MEDS: BENZTROPINE MESYLATE 2 MG TABLET PO SCH (20:07)
[2022-11-28 20:40] VITALS: RESP 17
[2022-11-29] MEDS: RisperiDONE 3 MG TABLET PO SCH ×2 (09:00→17:00)
[2022-11-29 20:57] VITALS: RESP 18
[2022-11-29] MEDS: BENZTROPINE MESYLATE 2 MG TABLET PO SCH (21:00)
[2022-11-30 08:22] VITALS: RESP 16; TEMP 98
[2022-11-30] MEDS: RisperiDONE 3 MG TABLET PO SCH ×2 (08:52→17:00)
[2022-11-30] MEDS ORDERED: LORazepam 2 MG/ML VIAL ONE (15:37)
[2022-11-30] MEDS ORDERED: LORazepam 2 MG/ML VIAL IM ONE (16:00)
[2022-11-30 20:09] VITALS: RESP 17
[2022-11-30] MEDS: BENZTROPINE MESYLATE 2 MG TABLET PO SCH (20:52)
[2022-12-01 08:25] VITALS: RESP 16
[2022-12-01] MEDS: RisperiDONE 3 MG TABLET PO SCH ×2 (08:46→17:00)
[2022-12-01] MEDS: BENZTROPINE MESYLATE 2 MG TABLET PO SCH (21:00)
[2022-12-01 21:02] VITALS: RESP 18
[2022-12-02 08:22] VITALS: RESP 16; TEMP 97.8
[2022-12-02] MEDS: RisperiDONE 3 MG TABLET PO SCH ×2 (09:00→16:52)
[2022-12-02 20:18] VITALS: RESP 17
[2022-12-02] MEDS: BENZTROPINE MESYLATE 2 MG TABLET PO SCH (21:00)
[2022-12-03] MEDS: RisperiDONE 3 MG TABLET PO SCH ×2 (08:13→16:21)
[2022-12-03 09:40] VITALS: RESP 18
[2022-12-03] MEDS: BENZTROPINE MESYLATE 2 MG TABLET PO SCH (21:00)
[2022-12-04 04:01] VITALS: RESP 18
[2022-12-04 08:23] VITALS: RESP 18
[2022-12-04] MEDS: RisperiDONE 3 MG TABLET PO SCH (09:00)
[2022-12-04] MEDS ORDERED: LORazepam 2 MG/ML VIAL ONE (14:46)
[2022-12-04] MEDS ORDERED: HALOPERIDOL LACTATE 5 MG/ML VIAL ONE (14:46)
[2022-12-04] MEDS ORDERED: LORazepam 2 MG/ML VIAL IM ONE (15:00)
[2022-12-04] MEDS ORDERED: HALOPERIDOL LACTATE 5 MG/ML VIAL IM ONE (15:00)
[2022-12-04] MEDS ORDERED: RISP3TAB63 PO (15:17)
[2022-12-04] MEDS ORDERED: BENZ2TAB71 PO (15:17)
[2022-12-04] MEDS ORDERED: RISPC50 IM (15:17)
== END 2022-12-04 15:00 | disposition short-term general hospital (02) | DRG 750 ==
LOC: EMS 16:06 → B2S 11-19 11:47 → B3A 11-19 14:34
PROVIDERS: ADMIT Psychiatry & Neurology Psychiatry; ATTEND Psychiatry & Neurology Psychiatry
DX: F20.0 Paranoid schizophrenia (principal); D64.9 Anemia, unspecified; G47.00 Insomnia, unspecified; K21.9 Gastro-esophageal reflux disease without esophagitis; Z79.899 Other long term (current) drug therapy; F10.90 Alcohol use, unspecified, uncomplicated; F17.200 Nicotine dependence, unspecified, uncomplicated; K59.00 Constipation, unspecified; F41.9 Anxiety disorder, unspecified; F94.0 Selective mutism; Z20.822 Contact with and (suspected) exposure to COVID-19
CPT/HCPCS: 80053; 99291; J1200; J1630; J2060; J2794

== ENCOUNTER 2022-12-21 14:47 | Inpatient (IN) | payer MEDICAID ==
[~2022-12-21] VITALS: Ht 154.9 cm; Wt 45.4 kg
[~2022-12-21 14:47] MED LIST changes: -BENZ1TAB84 PO; +BENZ2TAB71 PO; -RISP1SOL11 PO; +RISP3TAB63 PO; +RISPC50 IM; -SERT-439 PO
[2022-12-21] MEDS ORDERED: HALOPERIDOL 5 MG TABLET PO PRN (16:00)
[2022-12-22] MEDS ORDERED: BACITRACIN 28 GM OINTMENT TP PRN (06:00)
[2022-12-22] MEDS ORDERED: ACETAMINOPHEN 325 MG TABLET PO PRN (06:00)
[2022-12-22] MEDS ORDERED: CloNIDine HCL 0.1 MG TABLET PO PRN (06:00)
[2022-12-22] MEDS ORDERED: IBUPROFEN 600 MG TABLET PO PRN (06:00)
[2022-12-22] MEDS ORDERED: BENZOCAINE/MENTHOL LOZENGE PO PRN (06:00)
[2022-12-22] MEDS ORDERED: MAGNESIUM HYDROXIDE SUSPENSION 30 ML UDCUP PO PRN (06:00)
[2022-12-22] MEDS ORDERED: DOCUSATE SODIUM 100 MG CAPSULE PO PRN (06:00)
[2022-12-22] MEDS ORDERED: OMEPRAZOLE 20 MG CAPSULE PO PRN (06:00)
[2022-12-22] MEDS ORDERED: ONDANSETRON HCL 4 MG TABLET PO PRN (06:00)
[2022-12-22] MEDS ORDERED: LOPERAMIDE HCL 2 MG CAPSULE PO PRN (06:00)
[2022-12-22] MEDS ORDERED: ALBUTEROL SULFATE HFA 90 MCG/PUFF 8 GM INHALER IH PRN (06:00)
[2022-12-22] MEDS ORDERED: MAG HYDROX/AL HYDROX/SIMETH ES 30 ML SUSPENSION UDCUP PO PRN (06:00)
[2022-12-22] MEDS ORDERED: PETROLATUM,WHITE 28 GM JELLY TP PRN (06:00)
[2022-12-22] MEDS: MULTIVITAMINS WITH MINERALS, THERAPEUTIC TABLET PO SCH (08:36)
[2022-12-22] MEDS: MEGESTROL ACETATE 40 MG TABLET PO SCH (08:37)
[2022-12-22] MEDS: BENZTROPINE MESYLATE 2 MG TABLET PO SCH (21:00)
[2022-12-22 21:06] VITALS: RESP 18
[2022-12-23 09:27] VITALS: RESP 16; TEMP 97.1
[2022-12-23] MEDS: MULTIVITAMINS WITH MINERALS, THERAPEUTIC TABLET PO SCH (09:35)
[2022-12-23] MEDS: MEGESTROL ACETATE 40 MG TABLET PO SCH (09:36)
[2022-12-23] MEDS ORDERED: TUBERCULIN, PURIFIED PROTEIN DERIVATIVE 5 TU/0.1 ML SYRINGE ID ONE (14:00)
[2022-12-23] MEDS: RisperiDONE MICROSPHERES 50 MG/2 ML SYRINGE IM SCH (14:01)
[2022-12-23] MEDS: BENZTROPINE MESYLATE 2 MG TABLET PO SCH (20:22)
[2022-12-23 20:54] VITALS: RESP 18
[2022-12-24] MEDS: MULTIVITAMINS WITH MINERALS, THERAPEUTIC TABLET PO SCH (09:00)
[2022-12-24] MEDS: LORazepam 2 MG TABLET PO SCH ×3 (09:00→16:00)
[2022-12-24] MEDS: MEGESTROL ACETATE 40 MG TABLET PO SCH (09:01)
[2022-12-24] MEDS: BENZTROPINE MESYLATE 2 MG TABLET PO SCH (21:37)
[2022-12-24 21:50] VITALS: RESP 18
[2022-12-25] MEDS: MULTIVITAMINS WITH MINERALS, THERAPEUTIC TABLET PO SCH (09:00)
[2022-12-25] MEDS: MEGESTROL ACETATE 40 MG TABLET PO SCH (09:00)
[2022-12-25] MEDS: LORazepam 2 MG TABLET PO SCH ×3 (09:00→18:03)
[2022-12-25 09:06] VITALS: RESP 18
[2022-12-25 20:00] VITALS: RESP 20
[2022-12-25] MEDS: BENZTROPINE MESYLATE 2 MG TABLET PO SCH (20:29)
[2022-12-26 08:40] VITALS: RESP 18
[2022-12-26] MEDS: LORazepam 2 MG TABLET PO SCH ×3 (10:01→16:30)
[2022-12-26] MEDS: MULTIVITAMINS WITH MINERALS, THERAPEUTIC TABLET PO SCH (10:01)
[2022-12-26] MEDS: MEGESTROL ACETATE 40 MG TABLET PO SCH (10:02)
[2022-12-26] MEDS: BENZTROPINE MESYLATE 2 MG TABLET PO SCH (20:21)
[2022-12-26 21:49] VITALS: RESP 17
[2022-12-27] MEDS: MULTIVITAMINS WITH MINERALS, THERAPEUTIC TABLET PO SCH (08:30)
[2022-12-27] MEDS: LORazepam 2 MG TABLET PO SCH ×3 (08:30→16:55)
[2022-12-27] MEDS: MEGESTROL ACETATE 40 MG TABLET PO SCH (08:31)
[2022-12-27 09:17] VITALS: RESP 18
[2022-12-27] MEDS: BENZTROPINE MESYLATE 2 MG TABLET PO SCH (20:01)
[2022-12-27 22:28] VITALS: RESP 17
[2022-12-28 10:01] VITALS: RESP 18
[2022-12-28] MEDS: MULTIVITAMINS WITH MINERALS, THERAPEUTIC TABLET PO SCH (10:42)
[2022-12-28] MEDS: LORazepam 2 MG TABLET PO SCH ×3 (10:42→18:09)
[2022-12-28] MEDS: MEGESTROL ACETATE 40 MG TABLET PO SCH (10:42)
[2022-12-28 21:11] VITALS: RESP 17
[2022-12-28] MEDS: BENZTROPINE MESYLATE 2 MG TABLET PO SCH (21:28)
[2022-12-29 08:59] VITALS: RESP 18
[2022-12-29] MEDS: MULTIVITAMINS WITH MINERALS, THERAPEUTIC TABLET PO SCH (10:19)
[2022-12-29] MEDS: MEGESTROL ACETATE 40 MG TABLET PO SCH (10:19)
[2022-12-29] MEDS: LORazepam 2 MG TABLET PO SCH ×3 (10:20→16:57)
[2022-12-29 20:29] VITALS: RESP 18
[2022-12-29] MEDS: BENZTROPINE MESYLATE 2 MG TABLET PO SCH (21:22)
[2022-12-30] MEDS: LORazepam 2 MG TABLET PO PRN (10:05)
[2022-12-30] MEDS: MEGESTROL ACETATE 40 MG TABLET PO SCH (10:06)
[2022-12-30] MEDS: MULTIVITAMINS WITH MINERALS, THERAPEUTIC TABLET PO SCH (10:06)
[2022-12-30 11:01] VITALS: RESP 17
[2022-12-30 20:41] VITALS: RESP 18; TEMP 97.2
[2022-12-30] MEDS: BENZTROPINE MESYLATE 2 MG TABLET PO SCH (21:11)
[2022-12-31] MEDS: MEGESTROL ACETATE 40 MG TABLET PO SCH (08:33)
[2022-12-31] MEDS: MULTIVITAMINS WITH MINERALS, THERAPEUTIC TABLET PO SCH (08:33)
[2022-12-31 10:39] VITALS: RESP 18
[2022-12-31 20:20] VITALS: RESP 18; TEMP 97.9
[2022-12-31] MEDS: BENZTROPINE MESYLATE 2 MG TABLET PO SCH (21:10)
[2023-01-01] MEDS: LORazepam 2 MG TABLET PO PRN ×2 (03:00→20:02)
[2023-01-01] MEDS: MEGESTROL ACETATE 40 MG TABLET PO SCH (08:00)
[2023-01-01] MEDS: MULTIVITAMINS WITH MINERALS, THERAPEUTIC TABLET PO SCH (08:00)
[2023-01-01 08:40] VITALS: RESP 17; TEMP 96.6
[2023-01-01 20:05] VITALS: RESP 18
[2023-01-01] MEDS: BENZTROPINE MESYLATE 2 MG TABLET PO SCH (20:41)
[2023-01-02] MEDS: MULTIVITAMINS WITH MINERALS, THERAPEUTIC TABLET PO SCH (10:16)
[2023-01-02] MEDS: MEGESTROL ACETATE 40 MG TABLET PO SCH (10:17)
[2023-01-02 18:18] VITALS: RESP 17
[2023-01-02] MEDS: BENZTROPINE MESYLATE 2 MG TABLET PO SCH (20:35)
[2023-01-02] MEDS: LORazepam 2 MG TABLET PO PRN (20:35)
[2023-01-02 22:44] VITALS: RESP 18
[2023-01-03] MEDS: MULTIVITAMINS WITH MINERALS, THERAPEUTIC TABLET PO SCH (08:27)
[2023-01-03] MEDS: MEGESTROL ACETATE 40 MG TABLET PO SCH (08:27)
[2023-01-03 09:00] VITALS: RESP 17
[2023-01-03] MEDS: BENZTROPINE MESYLATE 2 MG TABLET PO SCH (20:52)
[2023-01-03] MEDS: LORazepam 2 MG TABLET PO PRN (20:52)
[2023-01-03 21:35] VITALS: RESP 18
[2023-01-04] MEDS: MULTIVITAMINS WITH MINERALS, THERAPEUTIC TABLET PO SCH (08:57)
[2023-01-04] MEDS: MEGESTROL ACETATE 40 MG TABLET PO SCH (08:57)
[2023-01-04 20:35] VITALS: RESP 18; TEMP 97.7
[2023-01-04] MEDS: BENZTROPINE MESYLATE 2 MG TABLET PO SCH (21:22)
[2023-01-04] MEDS: LORazepam 2 MG TABLET PO PRN (21:22)
[2023-01-05] MEDS: MEGESTROL ACETATE 40 MG TABLET PO SCH (08:55)
[2023-01-05] MEDS: MULTIVITAMINS WITH MINERALS, THERAPEUTIC TABLET PO SCH (08:58)
[2023-01-05 09:01] VITALS: RESP 17; TEMP 98
[2023-01-05] MEDS ORDERED: PNEUMOCOCCAL VACCINE POLYVALENT 0.5 ML SYRINGE [PPSV23] IM. ONE (11:30)
[2023-01-05] MEDS ORDERED: INFLUENZA VIRUS VACCINE QVS 2023-24 (6MO+)/PF 60 MCG/0.5 ML SYRINGE IM. ONE (11:30)
[2023-01-05] MEDS: LORazepam 2 MG TABLET PO PRN (20:44)
[2023-01-05] MEDS: BENZTROPINE MESYLATE 2 MG TABLET PO SCH (20:44)
[2023-01-05 21:14] VITALS: RESP 16
[2023-01-06] MEDS: MEGESTROL ACETATE 40 MG TABLET PO SCH (08:28)
[2023-01-06] MEDS: MULTIVITAMINS WITH MINERALS, THERAPEUTIC TABLET PO SCH (08:29)
[2023-01-06 14:32] VITALS: RESP 18; TEMP 98.5
[2023-01-06] MEDS: RisperiDONE MICROSPHERES 50 MG/2 ML SYRINGE IM SCH (15:46)
[2023-01-06 20:15] VITALS: RESP 18
[2023-01-06] MEDS: BENZTROPINE MESYLATE 2 MG TABLET PO SCH (21:18)
[2023-01-06] MEDS: LORazepam 2 MG TABLET PO PRN (21:47)
[2023-01-07] MEDS: MEGESTROL ACETATE 40 MG TABLET PO SCH (09:00)
[2023-01-07] MEDS: MULTIVITAMINS WITH MINERALS, THERAPEUTIC TABLET PO SCH (09:00)
[2023-01-07 10:55] VITALS: RESP 18
[2023-01-07] MEDS: BENZTROPINE MESYLATE 2 MG TABLET PO SCH (20:10)
[2023-01-07 20:35] VITALS: RESP 18; TEMP 98.1
[2023-01-07] MEDS: LORazepam 2 MG TABLET PO PRN (21:16)
[2023-01-08 05:47] LABS: COVID AG,FIA SOURCE NASAL SWAB
[2023-01-08 06:00] LABS: SARS-COV2 (COVID) ANTIGEN,FIA Negative (Negative)
[2023-01-08] MEDS: MULTIVITAMINS WITH MINERALS, THERAPEUTIC TABLET PO SCH (10:28)
[2023-01-08] MEDS: MEGESTROL ACETATE 40 MG TABLET PO SCH (10:29)
[2023-01-08 15:09] VITALS: RESP 20
[2023-01-08] MEDS: LORazepam 2 MG TABLET PO PRN (20:51)
[2023-01-08] MEDS: BENZTROPINE MESYLATE 2 MG TABLET PO SCH (20:51)
[2023-01-09] MEDS ORDERED: MULT-1239 PO (11:12)
[2023-01-09] MEDS ORDERED: MEGE40TA33 PO (11:13)
[2023-01-09] MEDS: MEGESTROL ACETATE 40 MG TABLET PO SCH (12:04)
[2023-01-09] MEDS: MULTIVITAMINS WITH MINERALS, THERAPEUTIC TABLET PO SCH (12:04)
== END 2023-01-09 14:20 | disposition home or self-care (01) | DRG 750 ==
LOC: 3EI 22:30
PROVIDERS: ADMIT Psychiatry & Neurology Psychiatry; ATTEND Psychiatry & Neurology Psychiatry
DX: F20.9 Schizophrenia, unspecified (principal); E46 Unspecified protein-calorie malnutrition; F06.1 Catatonic disorder due to known physiological condition; D64.9 Anemia, unspecified; F41.9 Anxiety disorder, unspecified; F94.0 Selective mutism; G47.00 Insomnia, unspecified; Z20.822 Contact with and (suspected) exposure to COVID-19; K21.9 Gastro-esophageal reflux disease without esophagitis; K59.00 Constipation, unspecified; Z68.1 Body mass index [BMI] 19.9 or less, adult; Z79.899 Other long term (current) drug therapy
CPT/HCPCS: 90686; 90732; J2794